=== PATIENT | male | born 1995 | race Hispanic/Latino ===

== ENCOUNTER 2021-07-10 01:35 | Emergency (ER) | payer OTHER, SELFPAY ==
[~2021-07-10] VITALS: Ht 175.3 cm; Wt 79.4 kg
[2021-07-10 03:36] VITALS: BP 136/75
== END 2021-07-10 03:37 ==
LOC: EDH 01:35
DX: Z02.89 Encounter for other administrative examinations (principal); R07.89 Other chest pain; M25.531 Pain in right wrist; Z20.822 Contact with and (suspected) exposure to COVID-19
CPT/HCPCS: 71045; 87635; 93005; 99285; C9803